=== PATIENT | male | born 1970 | race Caucasian/White ===

== ENCOUNTER 2022-07-28 19:22 | Emergency (ER) | payer MEDICAID ==
[2022-07-28] MEDS ORDERED: Sodium Chloride 0.9% 10 ML Syringe FLUSH PRN (19:47)
[2022-07-28] MEDS: Ondansetron 4 MG/2 ML SDV IVPUSH ONE ×2 (20:00→21:04)
[2022-07-28] MEDS: HYDROmorphone 0.5 MG/0.5 ML Syringe IVPUSH ONE ×2 (20:00→20:58)
[2022-07-28] MEDS ORDERED: Iopamidol 612 MG/ML 100 ML Bottle IV PRN (20:08)
[2022-07-28] MEDS ORDERED: Sodium Chloride 0.9% 10 ML SDV FLUSH ONE (20:08)
[2022-07-28] MEDS ORDERED: Sodium Chloride 0.9% 100 ML IV SCH (20:15)
[2022-07-28 20:19] LABS: ESTIMATED GFR 73 mL/min (>60)
[2022-07-28] MEDS ORDERED: Piperacillin/Tazobactam 3.375 GM in Sodium Chloride 0.9% 50 ML IV SCH (20:45)
[2022-07-28] MEDS ORDERED: Lactated Ringers 1,000 ML IV SCH (20:45)
[2022-07-28] MEDS ORDERED: Acetaminophen/HYDROcodone 325-5 MG Tab PO ONE (22:45)
== END 2022-07-28 23:30 ==
LOC: JP.ED 19:22
DX: K80.43 Calculus of bile duct with acute cholecystitis with obstruction (principal); K21.9 Gastro-esophageal reflux disease without esophagitis; I10 Essential (primary) hypertension; Z79.899 Other long term (current) drug therapy; Z20.822 Contact with and (suspected) exposure to COVID-19
CPT/HCPCS: 36415; 74177; 80053; 83605; 83690; 85025; 85610; 86140; 96361; 96365; 96375; 99285; 99285-25; A9270-GY; J1170; J2405; J2543; J3490; J7120; Q9967; U0002

== ENCOUNTER 2022-09-22 13:32 | Emergency (ER) | payer MEDICAID ==
[2022-09-22] MEDS ORDERED: EPINEPHrine 1:10,000 1 MG/10 ML Syringe IV ONE ×3 (13:37→13:47)
[2022-09-22 14:53] LABS: ESTIMATED GFR 60 mL/min (>60)
== END 2022-09-22 17:55 | disposition expired ==
LOC: JP.ED 13:32
DX: I46.9 Cardiac arrest, cause unspecified (principal); I10 Essential (primary) hypertension; K21.9 Gastro-esophageal reflux disease without esophagitis; Z79.899 Other long term (current) drug therapy
CPT/HCPCS: 31500; 36415; 80048; 82803; 83605; 84484; 85025; 85379; 92950; 96374; 99285; J0171